=== PATIENT | male | born 1935 | race Caucasian/White ===

== ENCOUNTER 2017-01-14 12:33 | Inpatient (IN) ==
[2017-01-14] MEDS ORDERED: IPRATROPIUM/ALBUTEROL 3 ML AMPUL.NEB NEB ONE (12:50)
--- NOTE | 2017-01-14 12:55 | Emergency Department Note ---
General Adult HPI - General Chief complaint: Weakness Stated complaint: weakness, cough, falls, SOB, sores Time Seen by Provider: 01/14/17 12:51 Source: patient, family Mode of arrival: ambulatory Limitations: altered mental status - History of Present Illness HPI Narrative: This patient is a demented patient who lives at [facility] on the apartment side. Over the last couple days she has become weaker fallen several times and has developed a cough. Patient himself cannot give me much of any history. Family members are present. Onset (ago): day(s) - Related Data Previous Rx's Medication Instructions Recorded donepezil 5 mg tablet 5 mg PO BID #1 tab 12/10/16 memantine 10 mg tablet 10 mg PO BID #1 tab 12/10/16 paroxetine 10 mg tablet 10 mg PO QDAY #1 tab 12/10/16 propafenone 225 mg tablet 225 mg PO BID #1 tab 12/10/16 lorazepam 0.5 mg tablet 0.25 mg PO BID PRN #30 tab 12/30/16 Allergies Allergy/AdvReac Type Severity Reaction Status Date / Time No Known Drug Allergies Allergy Unverified 12/10/16 15:44 Review of Systems Constitutional: Denies: fever, chills Eyes: Denies: eye pain ENT ED: Denies: ear pain Cardiovascular: Denies: chest pain Respiratory: Reports: cough, dyspnea, wheezes Gastrointestinal: Denies: abdominal pain, nausea, vomiting Genitourinary: Denies: urgency Musculoskeletal: Denies: back pain Integumentary: Denies: rash Past Medical History - Past Medical History [facility] Narrative: Medical History (Last Updated 12/09/16 @ 10:38 by Rebecca Ortega) History of tobacco abuse (Chronic) Anxiety (Chronic ~1999) Arthritis (Chronic) Daytime sleepiness (Chronic ~2009) Heart trouble (Chronic ~1999) Colon cancer (Chronic ~2004) Lung cancer (Chronic ~2007) Dementia (Chronic ~2012) Family History Father Heart attack Past Surgical History (Last Updated 12/09/16 @ 10:36 by Rebecca Ortega) H/O colonoscopy (Chronic) History of herniorrhaphy (Chronic ~2012) History of intestinal surgery (Chronic ~2004) History of lung surgery (Chronic) Physical Exam - General Limitations: altered mental status General appearance: alert, in no apparent distress - Head Head exam: atraumatic, normocephalic - Eye Eye exam: Present: normal appearance - ENT ENT exam: normal exam - Neck Neck exam: Present: normal inspection - Chest Chest inspection: Present: normal inspection - Respiratory Respiratory exam: Present: other (Rhonchi especially on the right side) - Cardiovascular Cardiovascular exam: Present: regular rate, normal rhythm, normal heart sounds - Abdominal Exam Abdominal exam: Present: soft. Absent: distention, tenderness - Extremities Exam Extremities exam: Absent: pedal edema - Neurological Exam Neurological exam: Present: alert - Psychiatric Psychiatric exam: Present: flat affect - Skin Skin exam: Present: warm, dry, intact, normal color Course Vital Signs Temperature 97.6 F 01/14/17 12:34 Pulse Rate 77 01/14/17 12:34 Respiratory Rate 26 H 01/14/17 12:34 Blood Pressure 131/90 01/14/17 12:34 Pulse Oximetry (%) 90 01/14/17 12:34 Temperature 97.6 F 01/14/17 12:34 Pulse Rate 58 L 01/14/17 14:11 Respiratory Rate 22 01/14/17 14:17 Blood Pressure 124/91 01/14/17 13:31 Pulse Oximetry (%) 92 01/14/17 14:11 Medical Decision Making - [facility] Narrative Medical decision making narrative: Patient has significant bilateral pneumonia with multiple falls recently. He certainly is unstable to be sent back to [facility]. We gave him Levaquin and Rocephin and he will be admitted to the hospital. - Lab Data Lab results reviewed: Yes I reviewed the patient's lab results. Result diagrams: 01/14/17 13:02 01/14/17 13:02 Lab Results 01/14/17 01/14/17 01/14/17 Range/Units 13:02 13:02 13:02 WBC 5.9 (4.5-11.0) K/mcL RBC 3.83 L (4.50-5.90) M/mcL Hgb 12.0 L (13.5-16.5) g/dL Hct 35.6 L (41.0-55.0) % MCV 93.2 (80.0-100.0) fL MCH 31.5 (26.0-34.0) pg MCHC 33.8 (31.0-36.0) g/dL RDW 16.0 H (11.5-14.5) % Plt Count 212 (140-440) K/mcL MPV 8.1 (7.4-10.4) fL Gran % 76.7 (38.0-78.0) % Lymph % (Auto) 11.1 L (15.5-49.0) % [place] % (Auto) 10.9 (1.0-12.0) % Eos % (Auto) 1.1 (0.0-7.0) % Baso % (Auto) 0.2 (0.0-2.0) % Gran # 4.5 (1.8-8.0) K/mcL Lymph # (Auto) 0.7 L (1.5-4.8) K/mcL [place] # (Auto) 0.6 (0.1-0.9) K/mcL Eos # (Auto) 0.1 (0.0-0.7) K/mcL Baso # (Auto) 0 (0.0-0.3) K/mcL VBG Lactic Acid 1.2 (0.5-2.2) mmol/L Sodium 140 (133-145) mmol/L Potassium 3.9 (3.3-5.1) mmol/L Chloride 101 (96-108) mmol/L Carbon Dioxide 27 (22-30) mmol/L Anion Gap 12.0 (8-16) BUN 22 (8-23) mg/dl Creatinine 1.0 (0.7-1.2) mg/dl GFR Calculation 70 Glucose 101 (70-105) mg/dL Calcium 9.2 (8.6-10.4) mg/dl Total Bilirubin 0.5 (0.0-1.0) mg/dL AST 35 (0-37) U/l ALT 30 (0-40) U/l Alkaline Phosphatase 138 H (39-117) U/L Total Protein 6.8 (5.9-8.4) gm/dL Albumin 3.4 (3.2-5.2) gm/dL Globulin 3.4 (2.2-3.7) gm/dL Albumin/Globulin Ratio 1.0 (1.0-2.3) - Radiology Data Radiology results reviewed: Yes I reviewed the patient's radiology results. Disposition Clinical Impression: Pneumonia Disposition: Xfer As Inpt ([facility]) Condition: Fair Referrals: Nikita Olvera MD [Primary Care Provider] - Time of Disposition: 14:29
[2017-01-14] MEDS ORDERED: 0.9 % SODIUM CHLORIDE 1,000 ML IV SCH ×2 (13:00→16:16)
--- NOTE | 2017-01-14 13:23 | XRay Report ---
CLINICAL INFORMATION: Cough COMPARISON: 01/14/2009 FINDINGS: Mild cardiomegaly is unchanged. Mediastinum and pulmonary vessels are normal. Right subclavian Port-A-Cath in stable satisfactory position A moderate sized consolidated infiltrate in the right midlung has developed. There is a moderate, although vague, infiltrate in the left midlung and base. Small bilateral pleural effusions noted IMPRESSION: Moderate sized consolidated infiltrate right midlung and smaller vague infiltrate left midlung. Consider aspiration, bilateral pneumonia or ARDS. Interpreted and Authenticated by: José Miguel Lindsay 01/14/17
[2017-01-14] MEDS ORDERED: LEVOFLOXACIN 500 MG/100 ML BAG IV ONE (13:26)
[2017-01-14] MEDS ORDERED: cefTRIAXone 1 GM in DEXTROSE 5% IN WATER 50 ML IV ONE (13:26)
[2017-01-14 13:37] LABS: Basophils # (Auto) 0 K/mcL (0.0-0.3); Basophils % (Auto) 0.2 % (0.0-2.0); Eosinophils # (Auto) 0.1 K/mcL (0.0-0.7); Eosinophils % (Auto) 1.1 % (0.0-7.0); Granulocytes % (Auto) 76.7 % (38.0-78.0); Lymphocytes # (Auto) 0.7 K/mcL (1.5-4.8); Lymphocytes % (Auto) 11.1 % (15.5-49.0); Mean Cell Volume 93.2 fL (80.0-100.0); Mean Corpuscular HGB Conc 33.8 g/dL (31.0-36.0); Mean Corpuscular Hemoglobin 31.5 pg (26.0-34.0); Monocytes # (Auto) 0.6 K/mcL (0.1-0.9); Monocytes % (Auto) 10.9 % (1.0-12.0); Platelet Count 212 K/mcL (140-440); RBC 3.83 M/mcL (4.50-5.90)
[2017-01-14 13:52] LABS: ALT/SGPT 30 U/l (0-40); Albumin 3.4 gm/dL (3.2-5.2); Alkaline Phosphatase 138 U/L (39-117); Blood Urea Nitrogen 22 mg/dl (8-23)
[2017-01-14] MEDS ORDERED: VANCOMYCIN PER PHARMACY IV ONE (15:25)
[2017-01-14] MEDS ORDERED: VANCOMYCIN 1,500 MG in 0.9 % SODIUM CHLORIDE 500 ML IV ONE ×2 (15:30→16:16)
[2017-01-14] MEDS ORDERED: LORazepam 2 MG/ML VIAL IV ONE (15:35)
--- NOTE | 2017-01-14 15:45 | Internal Med History&Physical ---
Medical - H&P: HPI Patient information: Note initiated : 01/14/17 at 3:26 pm Service Date, if different from initiated Date: [] Patient: Ashkan Alfred a 81 y/o M admitted on for weakness, cough, falls, SOB, sores. Chief Complaint: [] History of present illness: Mr. Alfred is a 81 year old male who lives in [facility], presents to the ER with complaints of recurrent falls over the last few days, feeling weak and tired unable to care for himself. 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 The patient since october has not been doing well, his p assed away at that time and since then t here has been a gradual decline in his overall health. The patient over the last few days has had recurrent episodes of falling, no obvious injuries reported. the patient has also had increased shortness of breath and some wet cough, (he usually has dry cough). There is no reported fever or chills. The patient was therefore brought in for further evaluation. In the ER it was noted he was hypoxic, and his Chest x ray suggestive of PNA, his lactic acid is normal, bp st able. He was admitted to the hospital for further management. He is DNR POA is son, who is on vacation, Daugther was at bedside who provided most history, patient has dementia but can answer some questions. Review of systems: CONSTITUTIONAL: fatigue present, HEENT: Eyes: No visual loss, blurred vision, double vision or yellow sclerae. Ears, Nose, Throat: No hearing loss, sneezing, congestion, runny nose or sore throat. SKIN: No rash or itching. CARDIOVASCULAR: No chest pain, chest pressure or chest discomfort. No palpitations or edema. (pt denies all symptoms) RESPIRATORY: No shortness of breath, cough or sputum. has chr cough, but pt denies active cough. GASTROINTESTINAL: No nausea, vomiting or diarrhea or constipation. No abdominal pain or blood in stools No Ban. GENITOURINARY: Denies Burning on urination. Blood in urine, or foul smelling urine NEUROLOGICAL: No headache, dizziness, syncope, paralysis, tremors, numbness or tingling in the extremities. No change in bowel or bladder control. MUSCULOSKELETAL: No muscle, back pain, joint pain or stiffness. HEMATOLOGIC: No bleeding or bruising. No enlarged nodes PSYCHIATRIC: No depression or anxiety. ENDOCRINOLOGIC: No reports of sweating, cold or heat intolerance. No polyuria or polydipsia. ALLERGIES: No hives, eczema or rhinitis. Skin: No rash, no jaundice, cyanosis or pallor. Medical - H&P: [facility] Medical history: Medical History (Last Updated 01/14/17 @ 14:30 by Gumaro Reyes MD) Anxiety (Chronic ~1999) Arthritis (Chronic) Colon cancer (Chronic ~2004) Daytime sleepiness (Chronic ~2009) Dementia (Chronic ~2012) Heart trouble (Chronic ~1999) History of tobacco abuse (Chronic) Lung cancer (Chronic ~2007) Surgical history: Past Surgical History (Last Updated 12/09/16 @ 10:36 by Rebecca Ortega) H/O colonoscopy (Chronic) History of herniorrhaphy (Chronic ~2012) History of intestinal surgery (Chronic ~2004) History of lung surgery (Chronic) Family history: reviewed and not pertinent Medical - H&P: Meds Home Medications Medication Instructions Recorded Confirmed Type donepezil 5 mg tablet 5 mg PO BID #1 tab 12/10/16 12/10/16 Rx memantine 10 mg tablet 10 mg PO BID #1 tab 12/10/16 12/10/16 Rx paroxetine 10 mg tablet 10 mg PO QDAY #1 tab 12/10/16 12/10/16 Rx propafenone 225 mg tablet 225 mg PO BID #1 tab 12/10/16 12/10/16 Rx lorazepam 0.5 mg tablet 0.25 mg PO BID PRN #30 tab 12/30/16 Rx Allergies Allergy/AdvReac Type Severity Reaction Status Date / Time No Known Drug Allergies Allergy Unverified 12/10/16 15:44 Medical - H&P: Exam - Constitutional Vitals: Temp Pulse Resp BP Pulse Ox 97.6 F 26 L 18 105/94 90 01/14/17 12:34 01/14/17 14:52 01/14/17 14:52 01/14/17 14:32 01/14/17 14:52 Exam: GENERAL: The patient is a well-developed, well-nourished in no apparent distress. Is alert and oriented x1. VITAL SIGNS: Reviewed and as noted elsewhere. HEENT: Head is normocephalic and atraumatic. Extraocular muscles are intact. Pupils are equal, round, and reactive to light. Nares appeared normal. Mouth appears any without lesions. Mucous membranes are dry. NECK: Normal to inspection, Supple, No lymphadenopathy or thyromegaly. LUNGS: Air entry equal on both sides, no wheezing, corase rhonchi on right side , mild crackles both bases. No accessory muscles of respiration HEART: Regular rate and rhythm irregular, S1 and S2 heard, no Gallop, S3 or Rub Noted, No Gross murmur heard. ABDOMEN: Soft, nontender, and nondistended. Positive bowel sounds. No hepatosplenomegaly was noted. EXTREMITIES: No cyanosis, clubbing, rash, lesions or edema. NEUROLOGIC: Cranial nerves II through XII are grossly intact. Motor and Sensory System Grossly Intact PSYCHIATRIC: Not agitated, drowsy SKIN: No ulceration or wounds noted, No jaundice, No rash noted. Medical - H&P: Reslt - Labs CBC & Chem 7: 01/14/17 13:02 01/14/17 13:02 Labs: Short CBC 01/14/17 Range/Units 13:02 WBC 5.9 (4.5-11.0) K/mcL Hgb 12.0 L (13.5-16.5) g/dL Hct 35.6 L (41.0-55.0) % Plt Count 212 (140-440) K/mcL BMP 01/14/17 13:02 Sodium 140 Potassium 3.9 Chloride 101 Carbon Dioxide 27 BUN 22 Creatinine 1.0 Glucose 101 Calcium 9.2 Liver Function 01/14/17 Range/Units 13:02 Total Bilirubin 0.5 (0.0-1.0) mg/dL AST 35 (0-37) U/l ALT 30 (0-40) U/l Alkaline Phosphatase 138 H (39-117) U/L Albumin 3.4 (3.2-5.2) gm/dL Medical - H&P: A/P - Narrative A/P Narrative: a/p Health care associated pneumonia: IV vanco and zosyn, for same, await results of culture. possible aspiration, zosyn should cover. Dementia: fairly advanced it seems, has sundowning, continue home meds aricept and memantine Afib: ON beta blockers, propafenone and eliquis continue same. Rate well controlled Acute hypoxic resp failure: On 3L oxygen via nasal canula continue same. anxiety/ depression: on paroxitine and prn ativan will continue same Will get OT/PT ST eval code DNR Diet: Cardiac Prognosis guarded Social History - Social History marital status: - Tobacco smoking status: Former smoker - Alcohol alcohol intake frequency: does not drink - Substance use substance use type: does not use
[2017-01-14] MEDS ORDERED: VANCOMYCIN PER PHARMACY IV SCH (16:16)
[2017-01-14] MEDS ORDERED: NALOXONE HCL 0.4 MG/ML VIAL IV PRN (16:16)
[2017-01-14] MEDS ORDERED: ONDANSETRON 4 MG/2 ML VIAL IV PRN (16:16)
[2017-01-14] MEDS ORDERED: ACETAMINOPHEN 325 MG TABLET PO PRN (16:16)
[2017-01-14 16:26] LABS: Appearance,Urine CLEAR; Bacteria,Urine 0 /hpf (0); Bilirubin,Urine NEG (NEG); Color,Urine YELLOW; Glucose,Urine (UA) NEGATIVE (NEG); Leukocyte Esterase,Urine NEG /uL (NEG); Mucus,Urine FEW /hpf (0); Nitrate,Urine NEG (NEG); Protein,Urine 30 mg/dL (NEG); Specific Gravity,Urine 1.029 (1.000-1.035); Urine Blood 0.03 mg/dL (<0.03); Urine RBC 7 /hpf (0-1); Urine Squamous Epithelial Cell < 1 /hpf (0-4); Urine WBC 2 /hpf (0-4); Urobilinogen,Urine NEG (NEG)
[2017-01-14] MEDS: PIPERACILLIN SODIUM/TAZOBACTAM 3.375 GM in DEXTROSE 5% IN WATER 50 ML IV SCH ×2 (17:55→23:32)
[2017-01-14] MEDS: MEMANTINE 10 MG TABLET PO SCH (19:46)
[2017-01-14] MEDS: PROPAFENONE 150 MG TABLET PO SCH (19:46)
[2017-01-14] MEDS: DONEPEZIL 10 MG TABLET PO SCH (19:47)
[2017-01-14] MEDS: APIXABAN 5 MG TABLET PO SCH (19:48)
[2017-01-14] MEDS: IPRATROPIUM/ALBUTEROL 3 ML AMPUL.NEB NEB SCH ×3 (21:02→23:34)
[2017-01-14] MEDS ORDERED: FUROSEMIDE 20 MG/2 ML VIAL IV ONE (21:04)
[2017-01-14] MEDS: 0.9 % SODIUM CHLORIDE 10 ML SYRINGE IV SCH (21:15)
[2017-01-14] MEDS: LORazepam 0.5 MG TABLET PO PRN (21:31)
[2017-01-14] MEDS: LORazepam 2 MG/ML VIAL IV PRN (22:23)
[2017-01-14] MEDS: methylPREDNISolone SOD SUCC 125 MG/2 ML VIAL IV SCH (22:29)
[2017-01-15] MEDS: LORazepam 2 MG/ML VIAL IV PRN ×6 (00:08→22:43)
[2017-01-15] MEDS: IPRATROPIUM/ALBUTEROL 3 ML AMPUL.NEB NEB SCH ×6 (03:34→22:43)
[2017-01-15] MEDS: methylPREDNISolone SOD SUCC 125 MG/2 ML VIAL IV SCH ×3 (05:21→22:45)
[2017-01-15] MEDS: PIPERACILLIN SODIUM/TAZOBACTAM 3.375 GM in DEXTROSE 5% IN WATER 50 ML IV SCH ×4 (05:22→22:47)
[2017-01-15] MEDS: 0.9 % SODIUM CHLORIDE 10 ML SYRINGE IV SCH ×4 (05:22→22:47)
[2017-01-15 05:41] LABS: Basophils # (Auto) 0 K/mcL (0.0-0.3); Basophils % (Auto) 0 % (0.0-2.0); Eosinophils # (Auto) 0 K/mcL (0.0-0.7); Eosinophils % (Auto) 0.3 % (0.0-7.0); Granulocytes % (Auto) 95.1 % (38.0-78.0); Lymphocytes # (Auto) 0.2 K/mcL (1.5-4.8); Lymphocytes % (Auto) 3.4 % (15.5-49.0); Mean Corpuscular HGB Conc 33.5 g/dL (31.0-36.0); Mean Corpuscular Hemoglobin 31.4 pg (26.0-34.0); Monocytes # (Auto) 0.1 K/mcL (0.1-0.9); Monocytes % (Auto) 1.2 % (1.0-12.0); Platelet Count 201 K/mcL (140-440); RBC 3.71 M/mcL (4.50-5.90); Red Cell Distribution Width 15.6 % (11.5-14.5)
[2017-01-15 05:58] LABS: ALT/SGPT 25 U/l (0-40); Albumin 3.4 gm/dL (3.2-5.2); Albumin/Globulin Ratio 1.2 (1.0-2.3); Alkaline Phosphatase 125 U/L (39-117); Bilirubin,Direct < 0.2 mg/dL (0.0-0.3); Blood Urea Nitrogen 18 mg/dl (8-23); Gamma Glutamyl Transpeptidase 37 U/L (8-61); Magnesium 1.8 mg/dL (1.6-2.5); Uric Acid 4.2 mg/dL (2.5-8.0)
--- NOTE | 2017-01-15 08:41 | General Surgery Consult Note ---
History of Present Illness Patient information: Note initiated : 01/15/17 at 8:32 am Service Date, if different from initiated Date: [] Patient: Ashkan Alfred 81 y/o M admitted on 01/14/17 for weakness, cough, falls, SOB, sores. Chief Complaint: [] Consult date: 01/15/17 (Wound Care) Reason for consult: wound care Requesting physician: Clark Henry History of present illness: 81 WM Resident of [facility], [facility]. Dementia, h/o colon cancer ,bowel cancer, s /p previous surgeries and other co morbid medical conditions. I reviewed his EHR notes and examined this patient along with nursing staff for skin and wound checks. There has been a recent decline in his cognition status and he has fallen several times. He was admitted to ICU via ER for altered mental status and Healthcare facility related pneumonia. His in October 2016 Currently, he is responding to broad spectrum IV antibiotics AND his breathing has significantly improved with diuresis. His O2 sats are now over 90s on 2 liters NC. During admission survey he was noted to have skin tears , abrasions. of left hand, right forearm and leg and over sacral area. Medications and Allergies Home Medications Medication Instructions Recorded Confirmed Type donepezil 5 mg tablet 5 mg PO BID #1 tab 12/10/16 01/14/17 Rx memantine 10 mg tablet 10 mg PO BID #1 tab 12/10/16 01/14/17 Rx lorazepam 0.5 mg tablet 0.25 mg PO BID PRN #30 tab 12/30/16 01/14/17 Rx Apixaban [Eliquis] 2.5 mg PO BID 01/14/17 01/14/17 History LORazepam [Ativan] 0.25 mg PO BID PRN 01/14/17 01/14/17 History Metoprolol Succinate 25 mg PO QDAY 01/14/17 01/14/17 History Miralax 1 pkg PO QDAY 01/14/17 01/14/17 History PARoxetine 10 mg PO QDAY 01/14/17 01/14/17 History Paxil 10 mg PO QDAY 01/14/17 01/14/17 History Propafenone 225 mg PO BID 01/14/17 01/14/17 History Remedy Calazime Skin Paste 1 dose TOPICAL BID 01/14/17 01/14/17 History Tylenol 325 mg PO PRN PRN 01/14/17 01/14/17 History Allergies Allergy/AdvReac Type Severity Reaction Status Date / Time No Known Drug Allergies Allergy Unverified 12/10/16 15:44 Exam Temp Pulse Resp BP Pulse Ox 99.0 F H 73 20 122/86 95 01/15/17 04:06 01/15/17 07:30 01/15/17 07:30 01/15/17 05:01 01/15/17 07:30 - General physical appearance well developed, well nourished, moderate distress, chronically ill - Eyes PERRL, normal ocular movement - ENT normal pinna, normal nares, normal mucosa, decreased hearing, other (NO activity of accessory muscles of respiration or flaringof nostrils.) - Head Head exam IM: Present: atraumatic, normal inspection, normocephalic - Neck no masses, no bruits, trachea midline, no lymphadectomy, no venous distension - Cardiovascular Cardiovascular exam IM: Present: irregular rhythm - Respiratory normal respiratory effort, other (Decreased air entry at lung bases. Fine crackles. ) - Abdomen Abdomen: Present: soft, non tender, bowel sounds - Genitourinary Present: normal penis with no external lesions, testicles present, other (Tay catheter draining clear urine.) - Integumentary Present: other (ABRASIONS EPITHELIAL dry and lean between 2-3 CM over dorsal aspect of Left hand, Right forearm and Right lateral mid leg. GRADE 1 dry sacral skin ulcer with pink granulation < 2 CM ) over left land right buttock skin folds. Atleast 6-8 CM away from anal verge. ) - Neurologic Present: other (CASTILLO. No focal neurological deficits. ) - Musculoskeletal Present: other (Bed confined. Skeletal survery NO fractures / dislocations. ) - Psychiatric Present: other (Confused, but appropriate in responses. ) Results - Labs 01/15/17 03:46 01/15/17 03:46 Abnormal lab results 01/15/17 01/15/17 Range/Units 03:46 03:46 RBC 3.71 L (4.50-5.90) M/mcL Hgb 11.7 L (13.5-16.5) g/dL Hct 34.9 L (41.0-55.0) % RDW 15.6 H (11.5-14.5) % Gran % 95.1 H (38.0-78.0) % Lymph % (Auto) 3.4 L (15.5-49.0) % Lymph # (Auto) 0.2 L (1.5-4.8) K/mcL Glucose 122 H (70-105) mg/dL Alkaline Phosphatase 125 H (39-117) U/L Lactate Dehydrogenase 259 H (94-250) U/L Diabetes panel 01/15/17 Range/Units 03:46 Sodium 140 (133-145) mmol/L Potassium 4.3 (3.3-5.1) mmol/L Chloride 101 (96-108) mmol/L Carbon Dioxide 27 (22-30) mmol/L BUN 18 (8-23) mg/dl Creatinine 1.0 (0.7-1.2) mg/dl Glucose 122 H (70-105) mg/dL Calcium 8.7 (8.6-10.4) mg/dl AST 32 (0-37) U/l ALT 25 (0-40) U/l Alkaline Phosphatase 125 H (39-117) U/L Total Protein 6.3 (5.9-8.4) gm/dL Albumin 3.4 (3.2-5.2) gm/dL Triglycerides 46 (<150) mg/dl Calcium panel 01/15/17 Range/Units 03:46 Calcium 8.7 (8.6-10.4) mg/dl Phosphorus 4.1 (2.7-4.5) mg/dL Albumin 3.4 (3.2-5.2) gm/dL Pituitary panel 01/15/17 Range/Units 03:46 Sodium 140 (133-145) mmol/L Potassium 4.3 (3.3-5.1) mmol/L Chloride 101 (96-108) mmol/L Carbon Dioxide 27 (22-30) mmol/L BUN 18 (8-23) mg/dl Creatinine 1.0 (0.7-1.2) mg/dl Glucose 122 H (70-105) mg/dL Calcium 8.7 (8.6-10.4) mg/dl Adrenal panel 01/15/17 Range/Units 03:46 Sodium 140 (133-145) mmol/L Potassium 4.3 (3.3-5.1) mmol/L Chloride 101 (96-108) mmol/L Carbon Dioxide 27 (22-30) mmol/L BUN 18 (8-23) mg/dl Creatinine 1.0 (0.7-1.2) mg/dl Glucose 122 H (70-105) mg/dL Calcium 8.7 (8.6-10.4) mg/dl Total Bilirubin 0.7 (0.0-1.0) mg/dL AST 32 (0-37) U/l ALT 25 (0-40) U/l Alkaline Phosphatase 125 H (39-117) U/L Total Protein 6.3 (5.9-8.4) gm/dL Albumin 3.4 (3.2-5.2) gm/dL All other labs normal. Assessment and Plan (1) Abrasion of skin Status: Acute Priority: Low Comment: Conservative management. Dry protective Mepilex border dressing . Daily checks. Change 2 times a week (2) Pressure ulcer Status: Acute Priority: Low Comment: Conservative management Thin duoderm over skin tear and ulcer sites. Absorbant MACARENA pad under hips, sacral anb buttock areas. OFF loading 30 degree foam wedges and change position q 2 hrly
[2017-01-15] MEDS: PARoxetine 20 MG TABLET PO SCH (09:29)
[2017-01-15] MEDS: MEMANTINE 10 MG TABLET PO SCH ×2 (09:29→20:22)
[2017-01-15] MEDS: METOPROLOL SUCCINATE 25 MG TAB.XL.24H PO SCH (09:29)
[2017-01-15] MEDS: PROPAFENONE 150 MG TABLET PO SCH ×2 (09:30→20:21)
[2017-01-15] MEDS: DONEPEZIL 10 MG TABLET PO SCH ×2 (09:30→20:22)
[2017-01-15] MEDS: APIXABAN 5 MG TABLET PO SCH (09:30)
--- NOTE | 2017-01-15 11:56 | Internal Med Progress Note ---
Medical - PN: Subj Patient information: Note initiated : 01/15/17 at 11:46 am Service Date, if different from initiated Date: [] Patient: Ashkan Alfred 81 y/o M admitted on 01/14/17 for weakness, cough, falls, SOB, sores. Chief Complaint: [] Interval history: Mr. Alfred is a 81 year old male who lives in [facility], [facility], presents to the ER with complaints of recurrent falls over the last few days, feeling weak and tired unable to care for himself. 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 The patient since october has not been doing well, his p assed away at that time and since then t here has been a gradual decline in his overall health.The patient over the last few days has had recurrent episodes of falling, no obvious injuries reported. the patient has also had increased shortness of breath and some wet cough, (he usually has dry cough). There is no reported fever or chills. The patient was therefore brought in for further evaluation. In the ER it was noted he was hypoxic, and his Chest x ray suggestive of PNA, his lactic acid is normal, bp st able. He was admitted to the hospital for further management. He is DNR POA is son, who is on vacation, Daugther was at bedside who provided most history, patient has dementia but can answer some questions. 01/15: Patient seen examined, overnight his condition had worsened, he was more short of breath with increased oxygen requirement and increased crackles on exam. He was given 20mg IV lasix, IVF stopped, he also had proloned exp phase and was started on IV steroids for copd flare up. This AM his breathing is better, his air entry is better and he is on 3L nc. He is DNR, family updated about poor progonosis. Patient will continue on IV antibiotics for now. Microbiology pending. pt remains non verbal, makes mumbling sounds, does not answer questions. Pertinent ROS: unable due to mental status - Constitutional Vitals: Vital Signs Temp Pulse Resp BP Pulse Ox 97.8 F 76 22 131/90 94 01/15/17 08:00 01/15/17 11:43 01/15/17 08:00 01/15/17 08:00 01/15/17 08:00 Period Temp Pulse Resp BP Sys/Anne Pulse Ox Last 24 Hr 97.7 F-99.2 F 61-95 20-25 105-179/52-152 77-97 Intake and Output 01/14/17 01/15/17 01/15/17 21:59 05:59 13:59 Intake Total 650 / 800 100 / 100 Output Total 200 / 200 2210 / 2210 100 / 100 Balance 450 / 600 -2110 / -2110 -100 / -100 Weight 158 lb 14.4 oz 158 lb 14.4 oz Patient Weight 01/16/17 05:59 Weight 158 lb 14.4 oz Intake & Output: Intake & Output 01/14/17 01/15/17 01/15/17 21:59 05:59 13:59 Intake Total 650 / 800 100 / 100 Output Total 200 / 200 2210 / 2210 100 / 100 Balance 450 / 600 -2110 / -2110 -100 / -100 Weight 158 lb 14.4 oz 158 lb 14.4 oz Intake: IV 550 / 550 100 / 100 Zosyn 3.375 gm In 50 / 50 100 / 100 Dextrose 5% in Water 50 ml @ 100 mls/hr IV Q6H [facility] Rx#:[id number] Vancomycin 1,500 mg In 500 / 500 Sodium Chloride 0.9% 500 ml @ 333.3 mls/hr IV ONCE ONE Rx#:[id number] Oral 100 / 100 Output: Urine Catheter Amount 2210 / 2210 100 / 100 Void Amount 200 / 200 Other: Percent of Meal Consumed 50% Feeding Ability Assist with Tray Set Up Exam: Constitutional; Afebrile, drowsy, in mild distress, Eyes- No icterus, , No periorbital swelling Ears- Ext ear normal, Neck- Midline trachea, supple Respiratory system: Air Entry equal on both sides, Proloned exp phase, bilbasilar crackles, CVS- Rate rhythm Irregular, S1,S2 heard, no gallop, no rub. Abdomen- Soft nontender abdomen, no organomegaly, no tenderness, no guarding or rigidity, PHYSICAL METALLURGIST- AOOx0, moving all extremities, no gross focal deficit noted. pin rolling tremors noted. Medical - PN: Obj Da - Labs CBC & Chem 7: 01/15/17 03:46 01/15/17 03:46 Labs: Abnormal Lab Results 01/15/17 01/15/17 03:46 03:46 RBC 3.71 L Hgb 11.7 L Hct 34.9 L RDW 15.6 H Gran % 95.1 H Lymph % (Auto) 3.4 L Lymph # (Auto) 0.2 L Glucose 122 H Alkaline Phosphatase 125 H Lactate Dehydrogenase 259 H Meds: Medications Acetaminophen (Tylenol) 650 mg PO Q6HP PRN PRN Reason: PAIN/FEVER > 101 Hydrocodone Bitart/Acetaminophen ([place] 5/325mg) 1 tab PO Q4HP PRN PRN Reason: Pain Albuterol/Ipratropium (Duoneb) 3 ml NEB Q4HRT [facility] Last Admin: 01/15/17 07:29 Dose: 3 ml Donepezil HCl (Aricept) 5 mg PO BID [facility] Last Admin: 01/15/17 09:30 Dose: 5 mg Piperacillin Sod/Tazobactam (Sod 3.375 gm/ Dextrose) 50 mls @ 100 mls/hr IV Q6H [facility] Last Admin: 01/15/17 11:26 Dose: 100 mls/hr Lorazepam (Ativan) 0.25 mg PO BID PRN PRN Reason: ANXIETY/SEDATION Last Admin: 01/14/17 21:31 Dose: 0.25 mg Lorazepam (Ativan) 0.5 - 1 mg IV Q2HP PRN PRN Reason: ANXIETY/SEDATION Last Admin: 01/15/17 10:01 Dose: 0.5 mg Memantine (Namenda) 10 mg PO BID [facility] Last Admin: 01/15/17 09:29 Dose: 10 mg Methylprednisolone Sodium Succinate (Solu-Medrol) 62.5 mg IV Q8 [facility] Last Admin: 01/15/17 05:21 Dose: 62.5 mg Metoprolol Succinate (Toprol Xl) 25 mg PO DAILY [facility] Last Admin: 01/15/17 09:29 Dose: 25 mg Naloxone HCl (Narcan) 0.1 mg IV Q2MIN PRN PRN Reason: Opiate Reversal Apixaban 2.5 Mg (Tablet) 1 dose PO BID [facility] Ondansetron HCl (Zofran) 4 mg IV Q4HP PRN PRN Reason: Nausea And Vomiting Paroxetine HCl (Paxil) 10 mg PO DAILY [facility] Last Admin: 01/15/17 09:29 Dose: 10 mg Propafenone HCl (Rythmol) 225 mg PO BID [facility] Last Admin: 01/15/17 09:30 Dose: 225 mg Sodium Chloride (Saline Flush) 10 ml IV Q8 [facility] Last Admin: 01/15/17 05:22 Dose: 10 ml Vancomycin HCl (Vancomycin Per Pharmacy) 1 order IV UD [facility] Medical - PN: A/P - Time Spent With Patient Total time spent is greater than 50% in coordination of care (as documented) at patient's floor/unit and/or counseling patient: - Narrative A/P Narrative: a/p Health care associated pneumonia: IV vanco and zosyn, for same, await results of culture. possible aspiration, zosyn should cover. Patient clinically stable, continue Dementia: fairly advanced it seems, has sundowning, continue home meds aricept and memantine Afib: ON beta blockers, propafenone and eliquis continue same. Rate well controlled Acute hypoxic resp failure: On 3L oxygen via nasal canula continue same. COPD exacerbation/ Reactive airway disease: IV steroids and duonebs for now, monitor. anxiety/ depression: on paroxitine and prn ativan will continue same Will get OT/PT ST eval code DNR Diet: Cardiac Prognosis guarded Medical - PN: Qual - VTE Deep Vein Thrombosis/Pulmonary Embolism Present on Admission: No
[2017-01-15] MEDS: APIXABAN 2.5 MG TABLET PO SCH (20:24)
[2017-01-16] MEDS: LORazepam 2 MG/ML VIAL IV PRN ×5 (01:59→23:30)
[2017-01-16] MEDS: IPRATROPIUM/ALBUTEROL 3 ML AMPUL.NEB NEB SCH ×6 (03:13→22:59)
[2017-01-16 05:18] LABS: Basophils # (Auto) 0 K/mcL (0.0-0.3); Basophils % (Auto) 0.1 % (0.0-2.0); Eosinophils # (Auto) 0 K/mcL (0.0-0.7); Eosinophils % (Auto) 0.3 % (0.0-7.0); Granulocytes % (Auto) 94.2 % (38.0-78.0); Lymphocytes # (Auto) 0.3 K/mcL (1.5-4.8); Lymphocytes % (Auto) 3.2 % (15.5-49.0); Mean Cell Volume 92.7 fL (80.0-100.0); Mean Corpuscular HGB Conc 33.4 g/dL (31.0-36.0); Mean Corpuscular Hemoglobin 30.9 pg (26.0-34.0); Monocytes # (Auto) 0.2 K/mcL (0.1-0.9); Monocytes % (Auto) 2.2 % (1.0-12.0); Platelet Count 216 K/mcL (140-440); RBC 3.91 M/mcL (4.50-5.90); Red Cell Distribution Width 15.4 % (11.5-14.5)
[2017-01-16] MEDS: methylPREDNISolone SOD SUCC 125 MG/2 ML VIAL IV SCH ×3 (05:26→23:08)
[2017-01-16] MEDS: PIPERACILLIN SODIUM/TAZOBACTAM 3.375 GM in DEXTROSE 5% IN WATER 50 ML IV SCH ×4 (05:26→22:56)
[2017-01-16] MEDS: 0.9 % SODIUM CHLORIDE 10 ML SYRINGE IV SCH ×6 (05:27→23:08)
[2017-01-16 05:45] LABS: ALT/SGPT 24 U/l (0-40); Albumin 3.4 gm/dL (3.2-5.2); Alkaline Phosphatase 114 U/L (39-117); Bilirubin,Direct < 0.2 mg/dL (0.0-0.3); Blood Urea Nitrogen 28 mg/dl (8-23); Gamma Glutamyl Transpeptidase 38 U/L (8-61); Magnesium 2.1 mg/dL (1.6-2.5); Uric Acid 3.3 mg/dL (2.5-8.0)
[2017-01-16] MEDS: PROPAFENONE 150 MG TABLET PO SCH ×2 (09:11→23:05)
[2017-01-16] MEDS: DONEPEZIL 10 MG TABLET PO SCH ×2 (09:11→23:01)
[2017-01-16] MEDS: MEMANTINE 10 MG TABLET PO SCH ×2 (09:12→23:01)
[2017-01-16] MEDS: LORazepam 0.5 MG TABLET PO PRN (09:12)
[2017-01-16] MEDS: PARoxetine 20 MG TABLET PO SCH (09:13)
[2017-01-16] MEDS: METOPROLOL SUCCINATE 25 MG TAB.XL.24H PO SCH (09:16)
[2017-01-16] MEDS: APIXABAN 2.5 MG TABLET PO SCH ×2 (09:22→23:02)
--- NOTE | 2017-01-16 10:56 | Internal Med Progress Note ---
Medical - PN: Subj Patient information: Note initiated : 01/16/17 at 10:52 am Service Date, if different from initiated Date: [] Patient: Ashkan Alfred 81 y/o M admitted on 01/14/17 for weakness, cough, falls, SOB, sores. Chief Complaint: [] Interval history: Mr. Alfred is a 81 year old male who lives in [facility], presents to the ER with complaints of recurrent falls over the last few days, feeling weak and tired unable to care for himself. 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 The patient since october has not been doing well, his p assed away at that time and since then t here has been a gradual decline in his overall health.The patient over the last few days has had recurrent episodes of falling, no obvious injuries reported. the patient has also had increased shortness of breath and some wet cough, (he usually has dry cough). There is no reported fever or chills. The patient was therefore brought in for further evaluation. In the ER it was noted he was hypoxic, and his Chest x ray suggestive of PNA, his lactic acid is normal, bp st able. He was admitted to the hospital for further management. He is DNR POA is son, who is on vacation, Daugther was at bedside who provided most history, patient has dementia but can answer some questions. 01/15: Patient seen examined, overnight his condition had worsened, he was more short of breath with increased oxygen requirement and increased crackles on exam. He was given 20mg IV lasix, IVF stopped, he also had prolonged exp phase and was started on IV steroids for copd flare up. This AM his breathing is better, his air entry is better and he is on 3L nc. He is DNR, family updated about poor prognosis. Patient will continue on IV antibiotics for now. Microbiology pending. pt remains non verbal, makes mumbling sounds, does not answer questions. 01/16: Patient seen examined, no acute overnight issues, pt non verbal, still on 3-4 L oxygen. I discussed patients condition with his family again yesterday, two children are here, the POA is here. The other son Daksha is in [place], who I called to give an update. It seems the siblings here and Daksha do not agree with the plan of care. The son Daksha Alfred seemed to have the idea that the paroxetine was the culprit in the patients mental condition. Although he did agree that dementia meds are necessary. I explained to him that at this time we need to treat the infection and I will leave the decision of anti depressant medication adjustment to his PCP. Pertinent ROS: unable, due to mental status - Constitutional Vitals: Vital Signs Temp Pulse Resp BP Pulse Ox 97.3 F 90 24 H 133/91 94 01/16/17 08:00 01/16/17 08:00 01/16/17 08:00 01/16/17 08:00 01/16/17 08:00 Period Temp Pulse Resp BP Sys/Anne Pulse Ox Last 24 Hr 97.0 F-99.1 F 48-91 20-24 113-181/73-142 89-100 Intake and Output 01/15/17 01/16/17 01/16/17 21:59 05:59 13:59 Intake Total 370 / 370 70 / 70 Output Total 350 / 350 140 / 140 Balance 20 / 20 -70 / -70 Weight 150 lb 3.2 oz Intake & Output: Intake & Output 01/15/17 01/16/17 01/16/17 21:59 05:59 13:59 Intake Total 370 / 370 70 / 70 Output Total 350 / 350 140 / 140 Balance 20 / 20 -70 / -70 Weight 150 lb 3.2 oz Intake: IV 50 / 50 50 / 50 Zosyn 3.375 gm In 50 / 50 50 / 50 Dextrose 5% in Water 50 ml @ 100 mls/hr IV Q6H [facility] Rx#:[id number] Oral 320 / 320 20 / 20 Output: Urine Catheter Amount 350 / 350 140 / 140 Other: Meal Dinner Percent of Meal Consumed 40 Feeding Ability Total Assistance Exam: Constitutional; Afebrile,not in distress. Eyes- No icterus, , No periorbital swelling Ears- Ext ear normal, hearing unable to assess. does not follow commands at times. Neck- Midline trachea, supple Respiratory system: Air Entry equal on both sides, gagan basilar crackles, prolonged exp phase. CVS- Rate rhythm irregular, S1,S2 heard, no gallop, no rub. Abdomen- Soft nontender abdomen, no organomegaly, no tenderness, no guarding or rigidity, GOLD LEAF GILDER- AOOx0, moving all extremities, no gross focal deficit noted. Medical - PN: Obj Da - Labs CBC & Chem 7: 01/16/17 03:53 01/16/17 03:53 Labs: Abnormal Lab Results 01/16/17 01/16/17 01/15/17 03:53 03:53 03:46 RBC 3.91 L Hgb 12.1 L Hct 36.2 L RDW 15.4 H Gran % 94.2 H Lymph % (Auto) 3.2 L Gran # 8.9 H Lymph # (Auto) 0.3 L BUN 28 H Glucose 153 H 122 H Alkaline Phosphatase 125 H Lactate Dehydrogenase 300 H 259 H 01/15/17 03:46 RBC 3.71 L Hgb 11.7 L Hct 34.9 L RDW 15.6 H Gran % 95.1 H Lymph % (Auto) 3.4 L Gran # Lymph # (Auto) 0.2 L BUN Glucose Alkaline Phosphatase Lactate Dehydrogenase Meds: Medications Acetaminophen (Tylenol) 650 mg PO Q6HP PRN PRN Reason: PAIN/FEVER > 101 Hydrocodone Bitart/Acetaminophen ([place] 5/325mg) 1 tab PO Q4HP PRN PRN Reason: Pain Albuterol/Ipratropium (Duoneb) 3 ml NEB Q4HRT [facility] Last Admin: 01/16/17 07:41 Dose: 3 ml Donepezil HCl (Aricept) 5 mg PO BID [facility] Last Admin: 01/16/17 09:11 Dose: 5 mg Heparin Sodium (Porcine) (Heparin Flush) 2 ml IV Q12 [facility] Last Admin: 01/16/17 09:14 Dose: 2 ml Piperacillin Sod/Tazobactam (Sod 3.375 gm/ Dextrose) 50 mls @ 100 mls/hr IV Q6H [facility] Last Admin: 01/16/17 05:26 Dose: 100 mls/hr Lorazepam (Ativan) 0.25 mg PO BID PRN PRN Reason: ANXIETY/SEDATION Last Admin: 01/16/17 09:12 Dose: 0.25 mg Lorazepam (Ativan) 0.5 - 1 mg IV Q2HP PRN PRN Reason: ANXIETY/SEDATION Last Admin: 01/16/17 01:59 Dose: 0.5 mg Memantine (Namenda) 10 mg PO BID [facility] Last Admin: 01/16/17 09:12 Dose: 10 mg Methylprednisolone Sodium Succinate (Solu-Medrol) 62.5 mg IV Q8 [facility] Last Admin: 01/16/17 05:26 Dose: 62.5 mg Metoprolol Succinate (Toprol Xl) 25 mg PO DAILY [facility] Last Admin: 01/16/17 09:16 Dose: 25 mg Naloxone HCl (Narcan) 0.1 mg IV Q2MIN PRN PRN Reason: Opiate Reversal Apixaban 2.5 Mg (Tablet) 1 dose PO BID [facility] Stop: 01/17/17 22:00 Last Admin: 01/16/17 09:22 Dose: 1 dose Ondansetron HCl (Zofran) 4 mg IV Q4HP PRN PRN Reason: Nausea And Vomiting Paroxetine HCl (Paxil) 10 mg PO DAILY [facility] Last Admin: 01/16/17 09:13 Dose: 10 mg Propafenone HCl (Rythmol) 225 mg PO BID [facility] Last Admin: 01/16/17 09:11 Dose: 225 mg Sodium Chloride (Saline Flush) 10 ml IV Q8 [facility] Last Admin: 01/16/17 05:27 Dose: 10 ml Sodium Chloride (Saline Flush) 10 ml IV Q8 [facility] Last Admin: 01/16/17 05:27 Dose: 10 ml Vancomycin HCl (Vancomycin Per Pharmacy) 1 order IV UD [facility] Medical - PN: A/P - Time Spent With Patient Total time spent is greater than 50% in coordination of care (as documented) at patient's floor/unit and/or counseling patient: - Narrative A/P Narrative: a/p Health care associated pneumonia: IV vanco and zosyn, for same, await results of culture. possible aspiration, zosyn should cover. Patient clinically stable, continue, recheck CXR chest today. Dementia: fairly advanced it seems, has sundowning, continue home meds aricept and memantine Afib: ON beta blockers, propafenone and eliquis continue same. Rate well controlled Acute hypoxic resp failure: On 3-4L oxygen via nasal canula continue same. COPD exacerbation/ Reactive airway disease: IV steroids and duonebs for now, improvin. anxiety/ depression: on paroxitine and prn ativan will continue same, Alexandresofia laura,(son in [place]) has some concerns with its use, advised to discuss with siblings and his pcp. code DNR Diet: Cardiac Prognosis guarded, Medical - PN: Qual - VTE Deep Vein Thrombosis/Pulmonary Embolism Present on Admission: No
[2017-01-17] MEDS: HYDROcodone/APAP 5/325MG TABLET PO PRN ×3 (01:11→15:15)
[2017-01-17] MEDS: LORazepam 2 MG/ML VIAL IV PRN ×5 (01:17→21:50)
[2017-01-17] MEDS: IPRATROPIUM/ALBUTEROL 3 ML AMPUL.NEB NEB SCH ×5 (04:31→19:25)
[2017-01-17 05:24] LABS: Basophils # (Auto) 0 K/mcL (0.0-0.3); Basophils % (Auto) 0 % (0.0-2.0); Eosinophils # (Auto) 0 K/mcL (0.0-0.7); Eosinophils % (Auto) 0.3 % (0.0-7.0); Granulocytes % (Auto) 95.7 % (38.0-78.0); Lymphocytes # (Auto) 0.2 K/mcL (1.5-4.8); Lymphocytes % (Auto) 2.1 % (15.5-49.0); Mean Cell Volume 93.9 fL (80.0-100.0); Mean Corpuscular HGB Conc 33.4 g/dL (31.0-36.0); Mean Corpuscular Hemoglobin 31.3 pg (26.0-34.0); Monocytes # (Auto) 0.2 K/mcL (0.1-0.9); Monocytes % (Auto) 1.9 % (1.0-12.0); Platelet Count 203 K/mcL (140-440); RBC 3.68 M/mcL (4.50-5.90); Red Cell Distribution Width 15.9 % (11.5-14.5)
[2017-01-17] MEDS: methylPREDNISolone SOD SUCC 125 MG/2 ML VIAL IV SCH ×2 (05:43→21:49)
[2017-01-17] MEDS: 0.9 % SODIUM CHLORIDE 10 ML SYRINGE IV SCH ×6 (05:44→21:52)
[2017-01-17] MEDS: PIPERACILLIN SODIUM/TAZOBACTAM 3.375 GM in DEXTROSE 5% IN WATER 50 ML IV SCH ×3 (05:44→18:13)
[2017-01-17 05:45] LABS: ALT/SGPT 33 U/l (0-40); Albumin 3.2 gm/dL (3.2-5.2); Albumin/Globulin Ratio 1.1 (1.0-2.3); Alkaline Phosphatase 99 U/L (39-117); Bilirubin,Direct < 0.2 mg/dL (0.0-0.3); Blood Urea Nitrogen 30 mg/dl (8-23); Gamma Glutamyl Transpeptidase 47 U/L (8-61); Magnesium 2.2 mg/dL (1.6-2.5); Uric Acid 3.2 mg/dL (2.5-8.0)
[2017-01-17] MEDS: METOPROLOL SUCCINATE 25 MG TAB.XL.24H PO SCH (07:42)
[2017-01-17] MEDS: APIXABAN 2.5 MG TABLET PO SCH (07:42)
[2017-01-17] MEDS: MEMANTINE 10 MG TABLET PO SCH ×2 (07:58→21:51)
[2017-01-17] MEDS: PARoxetine 20 MG TABLET PO SCH (07:59)
[2017-01-17] MEDS: DONEPEZIL 10 MG TABLET PO SCH ×2 (07:59→21:51)
--- NOTE | 2017-01-17 08:27 | XRay Report ---
CLINICAL INFORMATION: Follow pneumonia COMPARISON: 01/14/2017 FINDINGS: The heart is mildly enlarged, but unchanged. Right-sided Port-A-Cath tip is in stable satisfactory position. Mediastinum and pulmonary vessels are normal. Moderate sized infiltrate versus infiltrate-like mass in the right midlung has worsened slightly. Small patchy infiltrate in the left midlung and base also worsening. Small bilateral pleural effusions are stable IMPRESSION: Moderate sized infiltrate versus infiltrate-like mass in the right midlung slight progression. Moderate patchy infiltrate in the left midlung and base also progressing. Consider aspiration Interpreted and Authenticated by: José Miguel Lindsay 01/17/17
[2017-01-17] MEDS: PROPAFENONE 150 MG TABLET PO SCH ×2 (09:55→21:50)
--- NOTE | 2017-01-17 11:08 | Internal Med Progress Note ---
Medical - PN: Subj Patient information: Note initiated : 01/17/17 at 11:07 am Service Date, if different from initiated Date: [] Patient: Ashkan Alfred 81 y/o M admitted on 01/14/17 for weakness, cough, falls, SOB, sores. Chief Complaint: [] Interval history: January 14, 2017: History of present illness: Mr. Alfred is a 81 year old male who lives in [facility], presents to the ER with complaints of recurrent falls over the last few days, feeling weak and tired unable to care for himself. 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 The patient since october has not been doing well, his at that time and since then t here has been a gradual decline in his overall health.The patient over the last few days has had recurrent episodes of falling, no obvious injuries reported. the patient has also had increased shortness of breath and some wet cough, (he usually has dry cough). There is no reported fever or chills. The patient was therefore brought in for further evaluation. In the ER it was noted he was hypoxic, and his Chest x ray suggestive of PNA, his lactic acid is normal, bp st able. He was admitted to the hospital for further management. He is DNR POA is son, who is on vacation, Daughter was at bedside who provided most history, patient has dementia but can answer some questions. 01/15: Patient seen examined, overnight his condition had worsened, he was more short of breath with increased oxygen requirement and increased crackles on exam. He was given 20mg IV lasix, IVF stopped, he also had prolonged exp phase and was started on IV steroids for copd flare up. This AM his breathing is better, his air entry is better and he is on 3L nc. He is DNR, family updated about poor prognosis. Patient will continue on IV antibiotics for now. Microbiology pending. pt remains non verbal, makes mumbling sounds, does not answer questions. 01/16: Patient seen examined, no acute overnight issues, pt non verbal, still on 3-4 L oxygen. I discussed patients condition with his family again yesterday, two children are here, the POA is here. The other son Daksha is in [place], who I called to give an update. It seems the siblings here and Daksha do not agree with the plan of care. The son Daksha Alfred seemed to have the idea that the paroxetine was the culprit in the patients mental condition. Although he did agree that dementia meds are necessary. I explained to him that at this time we need to treat the infection and I will leave the decision of anti depressant medication adjustment to his PCP. January 17: today, the patient is obtunded. He really does not respond to either verbal stimulation or to touch. the nurses noted he did have some increased agitation last night and tried to pull out his lines. He received Ativan for his agitation , and eventually went back to sleep. His family has reported that he has had a gradual decline in functioning since October of this year, when his . he also recently underwent radiation treatment for a lung metastasis, reportedly due to previous colon cancer history. he continues to require oxygen to maintain O2 saturations. He is unable to answer any questions. - Constitutional Vitals: Vital Signs Temp Pulse Resp BP Pulse Ox 98.1 F 88 18 131/94 92 01/17/17 08:00 01/17/17 08:21 01/17/17 08:21 01/17/17 08:00 01/17/17 08:00 Period Temp Pulse Resp BP Sys/Anne Pulse Ox Last 24 Hr 97.9 F-98.1 F 72-89 16-20 124-160/83-140 92-95 Intake and Output 01/16/17 01/17/17 01/17/17 21:59 05:59 13:59 Intake Total 150 / 150 50 / 50 50 / 50 Output Total 2 / 2 Balance 148 / 148 45 / 45 49 / 49 Weight 145 lb 9.6 oz Intake & Output: Intake & Output 01/16/17 01/17/17 01/17/17 21:59 05:59 13:59 Intake Total 150 / 150 50 / 50 50 / 50 Output Total 2 / 2 Balance 148 / 148 45 / 45 49 / 49 Weight 145 lb 9.6 oz Intake: IV 50 / 50 50 / 50 50 / 50 Zosyn 3.375 gm In 50 / 50 50 / 50 50 / 50 Dextrose 5% in Water 50 ml @ 100 mls/hr IV Q6H [facility] Rx#:[id number] Oral 100 / 100 Output: # of times incontinent of 2 / 2 5 / 5 urine Other: Meal Dinner Percent of Meal Consumed 40 Feeding Ability Total Assistance # Voids 2 1 on exam, he is obtunded. Neck shows no obvious JVD. Cardiac examshows regular rate and rhythm. Lungs: Have diffusely coarse breath sounds, without significant wheezing. Abdomen is soft, with normal bowel sounds. Extremities: Show no significant edema. Neurologic exam:Patient is obtunded, and probably still sedated from the Ativan he received overnight. Medical - PN: Obj Da - Labs CBC & Chem 7: 01/17/17 03:59 01/17/17 03:59 Labs: Abnormal Lab Results 01/17/17 01/17/17 01/16/17 03:59 03:59 03:53 RBC 3.68 L Hgb 11.5 L Hct 34.6 L RDW 15.9 H Gran % 95.7 H Lymph % (Auto) 2.1 L Gran # 8.3 H Lymph # (Auto) 0.2 L BUN 30 H 28 H Glucose 152 H 153 H AST 41 H Alkaline Phosphatase Lactate Dehydrogenase 284 H 300 H 01/16/17 01/15/17 01/15/17 03:53 03:46 03:46 RBC 3.91 L 3.71 L Hgb 12.1 L 11.7 L Hct 36.2 L 34.9 L RDW 15.4 H 15.6 H Gran % 94.2 H 95.1 H Lymph % (Auto) 3.2 L 3.4 L Gran # 8.9 H Lymph # (Auto) 0.3 L 0.2 L BUN Glucose 122 H AST Alkaline Phosphatase 125 H Lactate Dehydrogenase 259 H january 17: Chest x-ray: Moderate sized infiltrate versus mass in the right mid lung, with slight progression. Moderate patchy infiltrate in the left mid lung and base, also progressing. Consider aspiration. small bilateral pleural effusions. January 14: -Urinalysis showed 30 mg of protein, positive occult blood, negative nitrites and leukocyte esterase. -blood cultures are negative so far. -MRSA screen was negative. EKG: Irregular rhythm, possible atrial fibrillation. Nonspecific intraventricular conduction delay. Meds: Medications Acetaminophen (Tylenol) 650 mg PO Q6HP PRN PRN Reason: PAIN/FEVER > 101 Hydrocodone Bitart/Acetaminophen ([place] 5/325mg) 1 tab PO Q4HP PRN PRN Reason: Pain Last Admin: 01/17/17 07:58 Dose: 1 tab Albuterol/Ipratropium (Duoneb) 3 ml NEB Q4HRT [facility] Last Admin: 01/17/17 08:18 Dose: 3 ml Donepezil HCl (Aricept) 5 mg PO BID [facility] Last Admin: 01/17/17 07:59 Dose: 5 mg Heparin Sodium (Porcine) (Heparin Flush) 2 ml IV Q12 [facility] Last Admin: 01/17/17 07:42 Dose: 2 ml Piperacillin Sod/Tazobactam (Sod 3.375 gm/ Dextrose) 50 mls @ 100 mls/hr IV Q6H [facility] Last Infusion: 01/17/17 06:30 Dose: Infused Lorazepam (Ativan) 0.25 mg PO BID PRN PRN Reason: ANXIETY/SEDATION Last Admin: 01/16/17 09:12 Dose: 0.25 mg Lorazepam (Ativan) 0.5 - 1 mg IV Q2HP PRN PRN Reason: ANXIETY/SEDATION Last Admin: 01/17/17 07:42 Dose: 0.5 mg Memantine (Namenda) 10 mg PO BID [facility] Last Admin: 01/17/17 07:58 Dose: 10 mg Methylprednisolone Sodium Succinate (Solu-Medrol) 62.5 mg IV Q8 [facility] Last Admin: 01/17/17 05:43 Dose: 62.5 mg Metoprolol Succinate (Toprol Xl) 25 mg PO DAILY [facility] Last Admin: 01/17/17 07:42 Dose: 25 mg Naloxone HCl (Narcan) 0.1 mg IV Q2MIN PRN PRN Reason: Opiate Reversal Apixaban 2.5 Mg (Tablet) 1 dose PO BID [facility] Stop: 01/17/17 22:00 Last Admin: 01/17/17 07:42 Dose: 1 dose Ondansetron HCl (Zofran) 4 mg IV Q4HP PRN PRN Reason: Nausea And Vomiting Paroxetine HCl (Paxil) 10 mg PO DAILY [facility] Last Admin: 01/17/17 07:59 Dose: 10 mg Propafenone HCl (Rythmol) 225 mg PO BID [facility] Last Admin: 01/17/17 09:55 Dose: 225 mg Sodium Chloride (Saline Flush) 10 ml IV Q8 [facility] Last Admin: 01/17/17 05:44 Dose: 10 ml Sodium Chloride (Saline Flush) 10 ml IV Q8 [facility] Last Admin: 01/17/17 05:49 Dose: Not Given Vancomycin HCl (Vancomycin Per Pharmacy) 1 order IV UD [facility] Medical - PN: A/P - Time Spent With Patient Total time spent is greater than 50% in coordination of care (as documented) at patient's floor/unit and/or counseling patient: 25 - 35 minutes - Narrative A/P Narrative: #1. Infectious disease. -Health care associated pneumonia: IV vanco and zosyn, for same, await results of culture. possible aspiration, zosyn should cover. patient is afebrile, with normal total white blood cell count, however granulocyte count has been a bit elevated the last 2 days. #2. Pulmonary.acute hypoxic respiratory failure. The patient has bilateral infiltrates versus mass. He does have a recent history of metastatic lung lesions, and radiation. Radiation pneumonitis might also be a concern. continue supplemental oxygen and bronchodilators as needed. -possible COPD exacerbation. On IV steroids, DuoNeb's. #3. Disposition: This patient appears to have a very poor functional status, and certainly cannot live alone in his current state. It sounds like he has had a downward decline since his 2 months ago. 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 #4. Neurologic. The patient does have underlying dementia, and has frequent episodes of agitation, which respond fairly well to Ativan. continue Aricept and memantine. anxiety/ depression: on paroxitine and prn ativan will continue same, Daksha alfred,(son in [place]) has some concerns with its use, advised to discuss with siblings and his pcp. #5. Cardiac. -Afib: ON beta blockers, propafenone and eliquis continue same. Rate well controlled #6.code status: DNR #7. DVT prophylaxis:continue Eliquis. Prognosis guarded. this visit took approximately 25 minutes today, to review his record and test results, examine him, review plan of care with nursing staff. Medical - PN: Qual - VTE Deep Vein Thrombosis/Pulmonary Embolism Present on Admission: No
[2017-01-17] MEDS ORDERED: NALOXONE HCL 0.4 MG/ML VIAL IV PRN (11:13)
[2017-01-17] MEDS ORDERED: ONDANSETRON 4 MG/2 ML VIAL IV PRN (11:13)
[2017-01-17] MEDS ORDERED: LORazepam 0.5 MG TABLET PO PRN (11:13)
[2017-01-17] MEDS ORDERED: VANCOMYCIN PER PHARMACY IV SCH (11:13)
[2017-01-17] MEDS ORDERED: ACETAMINOPHEN 325 MG TABLET PO PRN (11:13)
[2017-01-17] MEDS: VANCOMYCIN 1,500 MG in 0.9 % SODIUM CHLORIDE 500 ML IV SCH (13:31)
[2017-01-17] MEDS ORDERED: NON FORMULARY MEDICATION 1 DOSE MISCELL (Apixaban [Eliquis] 2.5 MG) PO SCH (21:00)
[2017-01-17] MEDS ORDERED: PROPAFENONE 225 MG PO SCH (21:00)
[2017-01-17] MEDS: APIXABAN 5 MG TABLET PO SCH (21:52)
[2017-01-18] MEDS: PIPERACILLIN SODIUM/TAZOBACTAM 3.375 GM in DEXTROSE 5% IN WATER 50 ML IV SCH ×3 (00:36→13:29)
[2017-01-18] MEDS: IPRATROPIUM/ALBUTEROL 3 ML AMPUL.NEB NEB SCH ×2 (00:37→06:55)
[2017-01-18] MEDS: HYDROcodone/APAP 5/325MG TABLET PO PRN (04:08)
[2017-01-18 05:29] LABS: Basophils # (Auto) 0 K/mcL (0.0-0.3); Basophils % (Auto) 0 % (0.0-2.0); Eosinophils # (Auto) 0 K/mcL (0.0-0.7); Eosinophils % (Auto) 0.2 % (0.0-7.0); Granulocytes % (Auto) 94.7 % (38.0-78.0); Lymphocytes # (Auto) 0.2 K/mcL (1.5-4.8); Lymphocytes % (Auto) 2.2 % (15.5-49.0); Mean Cell Volume 93.2 fL (80.0-100.0); Mean Corpuscular HGB Conc 33.5 g/dL (31.0-36.0); Mean Corpuscular Hemoglobin 31.3 pg (26.0-34.0); Monocytes # (Auto) 0.3 K/mcL (0.1-0.9); Monocytes % (Auto) 2.9 % (1.0-12.0); Platelet Count 241 K/mcL (140-440); RBC 4.17 M/mcL (4.50-5.90); Red Cell Distribution Width 15.7 % (11.5-14.5)
[2017-01-18 05:44] LABS: ALT/SGPT 71 U/l (0-40); Albumin 3.7 gm/dL (3.2-5.2); Albumin/Globulin Ratio 1.2 (1.0-2.3); Alkaline Phosphatase 103 U/L (39-117); Bilirubin,Direct 0.4 mg/dL (0.0-0.3); Blood Urea Nitrogen 22 mg/dl (8-23); Gamma Glutamyl Transpeptidase 72 U/L (8-61); Magnesium 2.2 mg/dL (1.6-2.5); Uric Acid 2.9 mg/dL (2.5-8.0)
[2017-01-18] MEDS: 0.9 % SODIUM CHLORIDE 10 ML SYRINGE IV SCH ×2 (06:04)
[2017-01-18] MEDS ORDERED: PARoxetine 20 MG TABLET PO SCH (09:00)
[2017-01-18] MEDS ORDERED: APIXABAN 5 MG TABLET PO SCH ×2 (09:00)
[2017-01-18] MEDS ORDERED: METOPROLOL SUCCINATE 25 MG TAB.XL.24H PO SCH (09:00)
[2017-01-18] MEDS: methylPREDNISolone SOD SUCC 125 MG/2 ML VIAL IV SCH (11:08)
[2017-01-18] MEDS: APIXABAN 5 MG TABLET PO SCH (13:28)
[2017-01-18] MEDS: DONEPEZIL 10 MG TABLET PO SCH (13:28)
[2017-01-18] MEDS: MEMANTINE 10 MG TABLET PO SCH (13:28)
[2017-01-18] MEDS: PROPAFENONE 150 MG TABLET PO SCH (13:29)
[2017-01-18] MEDS: VANCOMYCIN 1,500 MG in 0.9 % SODIUM CHLORIDE 500 ML IV SCH (13:29)
[2017-01-18] MEDS: LORazepam 2 MG/ML VIAL IV PRN (13:30)
--- NOTE | 2017-01-18 14:38 | Discharge Summary ---
Medical - DS: Prov Patient information: Note initiated : 01/18/17 at 2:35 pm Patient: Ashkan Alfred 81 y/o M admitted on 01/14/17 for weakness, cough, falls, SOB, sores. Date of admission: 01/14/17 15:55 Discharge date: 01/18/17 Primary care physician: Nikita Olvera Admitting clinician: Clark Henry Consults: 01/15/17 08:14 Consult to Physician [CONS] Routine Comment: wound consult Consulting Provider: Quan Blanco Reason For Exam: Physician to Consult Attending physician on discharge: Haleigh Guzman Medical - DS: Meds - Discharge Medications Prescriptions: Acetaminophen [Tylenol] 650 mg PO Q6HP PRN #1 tablet PRN Reason: Pain/Fever > 101 Albuterol Sulfate 2.5 mg IH Q4HP PRN #1 ml PRN Reason: Shortness Of Breath Or Wheezing LORazepam [Ativan] 0.5 - 1 mg IV Q2HP PRN #1 vial PRN Reason: Anxiety/Sedation morphine 2 mg IV Q4HP PRN #1 syringe PRN Reason: Pain Active and Home Medications: discharge medications will include: Morphine 1-2 mg IV every 2 hours when necessary Ativan0.5-1 mg IV every 4 hours when necessary anxiety or agitation Albuterol nebulizer treatments when necessary Oxygen when necessary respiratory distress discontinue: propafenone, MiraLAX Paxil, metoprolol amantadine, donepezil, oral Ativan, Eliquis, [place], duo nebs heparin Zosyn, Solu-Medrol, vancomycin Previous Home Medications donepezil 5 mg tablet 5 mg PO BID #1 tab 12/10/16 [Rx Confirmed 01/14/17 Last Taken Unknown] memantine 10 mg tablet 10 mg PO BID #1 tab 12/10/16 [Rx Confirmed 01/14/17 Last Taken Unknown] lorazepam 0.5 mg tablet 0.25 mg PO BID PRN #30 tab 12/30/16 [Rx Confirmed Last Taken Unknown] Apixaban [Eliquis] 2.5 mg PO BID 01/14/17 [History Confirmed 01/14/17 Last Taken Unknown] LORazepam [Ativan] 0.25 mg PO BID PRN 01/14/17 [History Confirmed 01/14/17 Last Taken Unknown] Metoprolol Succinate 25 mg PO QDAY 01/14/17 [History Confirmed 01/14/17 Last Taken Unknown] Miralax 1 pkg PO QDAY 01/14/17 [History Confirmed 01/14/17 Last Taken Unknown] PARoxetine 10 mg PO QDAY 01/14/17 [History Confirmed 01/14/17 Last Taken Unknown ] Paxil 10 mg PO QDAY 01/14/17 [History Confirmed 01/14/17 Last Taken Unknown] Propafenone 225 mg PO BID 01/14/17 [History Confirmed 01/14/17 Last Taken Unknown] Remedy Calazime Skin Paste 1 dose TOPICAL BID 01/14/17 [History Confirmed Last Taken Unknown] Tylenol 325 mg PO PRN PRN 01/14/17 [History Confirmed 01/14/17 Last Taken Unknown] Medical - DS: Hosp Hospital course: Mr. Alfred is a 81 year old M January 14, 2017: History of present illness: Mr. Alfred is a 81 year old male who lives in [facility], presents to the ER with complaints of recurrent falls over the last few days, feeling weak and tired unable to care for himself. 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 The patient since october has not been doing well, his at that time and since then t here has been a gradual decline in his overall health.The patient over the last few days has had recurrent episodes of falling, no obvious injuries reported. the patient has also had increased shortness of breath and some wet cough, (he usually has dry cough). There is no reported fever or chills. The patient was therefore brought in for further evaluation. In the ER it was noted he was hypoxic, and his Chest x ray suggestive of PNA, his lactic acid is normal, bp st able. He was admitted to the hospital for further management. He is DNR POA is son, who is on vacation, Daughter was at bedside who provided most history, patient has dementia but can answer some questions. 01/15: Patient seen examined, overnight his condition had worsened, he was more short of breath with increased oxygen requirement and increased crackles on exam. He was given 20mg IV lasix, IVF stopped, he also had prolonged exp phase and was started on IV steroids for copd flare up. This AM his breathing is better, his air entry is better and he is on 3L nc. He is DNR, family updated about poor prognosis. Patient will continue on IV antibiotics for now. Microbiology pending. pt remains non verbal, makes mumbling sounds, does not answer questions. 01/16: Patient seen examined, no acute overnight issues, pt non verbal, still on 3-4 L oxygen. I discussed patients condition with his family again yesterday, two children are here, the POA is here. The other son Daksha is in [place], who I called to give an update. It seems the siblings here and Daksha do not agree with the plan of care. The son Daksha Alfred seemed to have the idea that the paroxetine was the culprit in the patients mental condition. Although he did agree that dementia meds are necessary. I explained to him that at this time we need to treat the infection and I will leave the decision of anti depressant medication adjustment to his PCP. January 17: today, the patient is obtunded. He really does not respond to either verbal stimulation or to touch. the nurses noted he did have some increased agitation last night and tried to pull out his lines. He received Ativan for his agitation , and eventually went back to sleep. His family has reported that he has had a gradual decline in functioning since October of this year, when his . he also recently underwent radiation treatment for a lung metastasis, reportedly due to previous colon cancer history. he continues to require oxygen to maintain O2 saturations. He is unable to answer any questions. January 18: The patient has continued to decline. He is mostly obtunded. When he is awake , he is either agitated, or very confused. He is taking in very little of anything by mouth. i am unable to wake him up, when I enter the room. He seems to be in a deep sleep. He does not respond to voice or touch. On exam, again he is obtunded. neck shows no obvious JVD. Cardiac exam hest regular rate and rhythm. Lungs have diffusely coarse breath sounds, with scattered rhonchi, bilaterally. Respirations otherwise do not appear labored. Abdomen: Is soft, and appears nontender. extremities: Show no significant edema. assessment and plan: #1. Disposition: clinically, the patient is not improving, and appears to be declining. The social services designee and I met with 2 of the patient's 3 children today. His son Fer is his POA. We discussed his father's end-of-life wishes, and he notes that the patient has been quite clear lately that he does not want to keep trying to stay alive We discussed that at this point it does not seem either practical or ethical to keep forcing aggressive care on the patient. At this time, the POA is willing to move the patient to comfort care and his sister is in agreement. They did request that I call the other son, Alexandre I did call him and discuss the situation with him. He reluctantly agrees that comfort care is probably the only option. he initially said he could not come here, because of work, but then called back just now, to say that he has rearranged his travel plans, and will be arriving tomorrow. Raquel of case management did arrange for the patient to be discharged from here to swing bed status, so that we can continue to care for the patient here, rather than having to go through the upheaval sending him to another facility. This is the family's preference. #2. Infectious disease. -Health care associated pneumonia: he was treated with IV Zosyn and vancomycin, and while vital signs are fairly stable, his x-ray has looked worse. #3. Pulmonary.acute hypoxic respiratory failure. The patient has bilateral infiltrates versus mass. He does have a recent history of metastatic lung lesions, and radiation. Radiation pneumonitis might also be a concern. continue supplemental oxygen and bronchodilators as needed for comfort.. It sounds like he has had a downward decline since his 2 months ago. continue discussions with the family about goals, as above. #4. Neurologic. The patient does have underlying dementia, and has frequent episodes of agitation, which respond fairly well to Ativan. #6.code status: DNR Discharge diagnosis: Pneumonia. Metastatic cancer. Respiratory failure. - Time Spent with Patient Total time spent providing and/or coordinating discharge services: Greater than 30 minutes (approximately 45 minutes was spent today, examining the patient reviewing test results, meeting with the patient's family, and then having to phone calls with the patient's other son, Alexandre, and writing orders.) Medical - DS: Exam - Constitutional Vitals: Vital Signs Temp Pulse Pulse Pulse Resp BP BP 01/18/17 11:49 97.4 F 18 144/93 01/18/17 07:42 98.0 F 20 153/93 01/18/17 07:27 110 H 20 01/18/17 07:24 80 20 01/18/17 04:00 98.1 F 92 H 20 158/90 01/18/17 00:00 97.8 F 86 20 01/17/17 20:00 97.6 F 88 20 128/65 01/17/17 19:32 86 18 01/17/17 19:26 01/17/17 19:25 01/17/17 15:31 97.5 F 20 161/76 Pulse Ox 01/18/17 11:49 95 01/18/17 07:42 97 01/18/17 07:27 95 01/18/17 07:24 01/18/17 04:00 93 01/18/17 00:00 98 01/17/17 20:00 96 01/17/17 19:32 01/17/17 19:26 96 01/17/17 19:25 96 01/17/17 15:31 Intake and Output 01/18/17 01/18/17 01/18/17 05:59 13:59 21:59 Intake Total 50 / 50 Output Total 3 / 3 Balance 49 / 49 -3 / -3 Intake: IV 50 / 50 Zosyn 3.375 gm In 50 / 50 Dextrose 5% in Water 50 ml @ 100 mls/hr IV Q6H [facility] Rx#:[id number] Output: # of times incontinent of / 3 / 3 urine Other: Meal Applesauce with meds Percent of Meal Consumed 50% Feeding Ability Total Assistance # Voids 1 # of times incontinent of 1 Bowels Medical - DS: Data Labs on day of discharge: Labs from last 24 hours 01/18/17 01/18/17 04:25 04:25 WBC 9.4 RBC 4.17 L Hgb 13.0 L Hct 38.9 L MCV 93.2 MCH 31.3 MCHC 33.5 RDW 15.7 H Plt Count 241 MPV 8.0 Gran % 94.7 H Lymph % (Auto) 2.2 L [place] % (Auto) 2.9 Eos % (Auto) 0.2 Baso % (Auto) 0 Gran # 8.9 H Lymph # (Auto) 0.2 L [place] # (Auto) 0.3 Eos # (Auto) 0 Baso # (Auto) 0 Sodium 136 Potassium 3.9 Chloride 96 Carbon Dioxide 30 Anion Gap 10.0 BUN 22 Creatinine 0.9 GFR Calculation 80 Glucose 142 H Uric Acid 2.9 Calcium 9.0 Phosphorus 3.0 Magnesium 2.2 Total Bilirubin 1.0 Direct Bilirubin 0.4 H GGT 72 H AST 68 H ALT 71 H Alkaline Phosphatase 103 Lactate Dehydrogenase 313 H Total Protein 6.8 Albumin 3.7 Globulin 3.1 Albumin/Globulin Ratio 1.2 Triglycerides 85 january 17: Chest x-ray: Moderate sized infiltrate versus mass in the right mid lung, with slight progression. Moderate patchy infiltrate in the left mid lung and base, also progressing. Consider aspiration. small bilateral pleural effusions. January 14: -Urinalysis showed 30 mg of protein, positive occult blood, negative nitrites and leukocyte esterase. -blood cultures are negative so far. -MRSA screen was negative. EKG: Irregular rhythm, possible atrial fibrillation. Nonspecific intraventricular conduction delay. Medical - DS: A/P - Patient/Caregiver Discharge Instructions Activity: increase activity as tolerated Diet: Regular Diet Additional Instructions: See swing bed admit orders. Prescriptions: Acetaminophen [Tylenol] 650 mg PO Q6HP PRN #1 tablet PRN Reason: Pain/Fever > 101 Albuterol Sulfate 2.5 mg IH Q4HP PRN #1 ml PRN Reason: Shortness Of Breath Or Wheezing LORazepam [Ativan] 0.5 - 1 mg IV Q2HP PRN #1 vial PRN Reason: Anxiety/Sedation morphine 2 mg IV Q4HP PRN #1 syringe PRN Reason: Pain - Follow up Plan Follow up with: Nikita Olvera MD [Primary Care Provider] - Disposition: [facility] Swing Bed Prognosis: Critical Rehab Potential: Critical I certify that the patient requires SNF services: Yes Medical - DS: Qual - VTE Deep Vein Thrombosis/Pulmonary Embolism Present on Admission: No
== END 2017-01-18 14:40 | disposition other institution (70) | DRG 190 ==
LOC: ED 12:33 → ICU 13:55 → SUATTDRO 15:55 → ICU 15:55 → MEDSUR 01-17 12:23
PROVIDERS: ADMIT Internal Medicine; ATTEND Internal Medicine

== ENCOUNTER 2017-01-18 12:49 | Inpatient (IN) ==
[2017-01-18] MEDS ORDERED: ACETAMINOPHEN 500 MG TABLET PO PRN (18:04)
[2017-01-18] MEDS ORDERED: ALBUTEROL SULFATE 2.5 MG/3 ML NEBULIZER INH PRN (18:35)
[2017-01-18] MEDS ORDERED: ONDANSETRON 4 MG/2 ML VIAL IV PRN (18:35)
[2017-01-18] MEDS ORDERED: ACETAMINOPHEN 325 MG TABLET PO PRN (18:35)
[2017-01-18] MEDS: 0.9 % SODIUM CHLORIDE 10 ML SYRINGE IV SCH ×2 (22:03→22:04)
[2017-01-18] MEDS: [UNRECOGNIZED DRUG - OTHER] TOPICAL SCH (22:04)
[2017-01-18] MEDS: LORazepam 2 MG/ML VIAL IV PRN (22:04)
[2017-01-19] MEDS: LORazepam 2 MG/ML VIAL IV PRN ×4 (02:06→22:26)
[2017-01-19] MEDS: 0.9 % SODIUM CHLORIDE 10 ML SYRINGE IV SCH ×8 (02:07→22:26)
[2017-01-19] MEDS ORDERED: DOCUSATE SODIUM 100 MG CAPSULE PO PRN (06:28)
--- NOTE | 2017-01-19 10:11 | Internal Med History&Physical ---
Medical - H&P: [facility] Patient information: Note initiated : 01/19/17 at 10:09 am Patient: Ashkan Alfred 81 y/o M admitted on 01/18/17 for Pneumonia. History of present illness: Mr. Alfred is a 81 year old M This 81-year-old man was admitted to the hospital on January 14, 2017 with pneumonia and altered mental status. He had been declining markedly over the last couple of months, since the of his . He was admitted and treated with IV fluids and IV antibiotics, etc. He has continued to have episodes of confusion and agitation, interrupting episodes of generally being obtunded. He has been nonverbal for most of his stay. He really did not show any significant clinical improvement with treatment. His overall debilities were reviewed with his son Fer, who is his POA, as well as his daughter and his other son. Ultimately, they all agreed that the patient would not want to continue aggressive care, and would rather let nature take its course. He was discharged to swing bed status yesterday. Last evening we started comfort care measures. Today, the patient remains obtunded. He does not respond at all to me, but nurses say occasionally he will moan. He has no purposeful or intelligible speech. He does not follow commands. He had a follow-up swallow eval this morning, and they confirm that he really is not safe to swallow anything. He is unable to give a history. Medical History Anxiety (Chronic ~1999) Arthritis (Chronic) Colon cancer (Chronic ~2004) Daytime sleepiness (Chronic ~2009) Dementia (Chronic ~2012) Heart trouble (Chronic ~1999) History of tobacco abuse (Chronic) Lung cancer (Chronic ~2007) status post recent radiation treatments for a metastasis in his lung. Past Surgical History H/O colonoscopy (Chronic) History of herniorrhaphy (Chronic ~2012) History of intestinal surgery (Chronic ~2004) History of lung surgery (Chronic) Family History Father Heart attack Social History marital status: smoking status: Former smoker alcohol intake frequency: does not drink substance use type: does not use He has a son and daughter that live in the area, and one son that lives out of town. Medical - H&P: Meds Home Medications Medication Instructions Recorded Confirmed Type donepezil 5 mg tablet 5 mg PO BID #1 tab 12/10/16 01/18/17 Rx memantine 10 mg tablet 10 mg PO BID #1 tab 12/10/16 01/18/17 Rx lorazepam 0.5 mg tablet 0.25 mg PO BID PRN #30 tab 12/30/16 01/18/17 Rx Apixaban [Eliquis] 2.5 mg PO BID 01/14/17 01/18/17 History LORazepam [Ativan] 0.25 mg PO BID PRN 01/14/17 01/18/17 History Metoprolol Succinate 25 mg PO QDAY 01/14/17 01/18/17 History Miralax 1 pkg PO QDAY 01/14/17 01/18/17 History PARoxetine 10 mg PO QDAY 01/14/17 01/18/17 History Paxil 10 mg PO QDAY 01/14/17 01/18/17 History Propafenone 225 mg PO BID 01/14/17 01/18/17 History Remedy Calazime Skin Paste 1 dose TOPICAL BID 01/14/17 01/18/17 History Tylenol 325 mg PO PRN PRN 01/14/17 01/18/17 History 0.9 % Sodium Chloride [Saline 10 ml IV Q8 01/18/17 01/18/17 Rx Flush] 0.9 % Sodium Chloride [Saline 10 ml IV Q8 #1 01/18/17 01/18/17 Rx Flush] Acetaminophen [Tylenol] 650 mg PO Q6HP PRN #1 tablet 01/18/17 01/18/17 Rx Albuterol Sulfate 2.5 mg IH Q4HP PRN #1 ml 01/18/17 01/18/17 Rx Heparin Flush 2 ml IV Q12 01/18/17 01/18/17 Rx LORazepam [Ativan] 0.5 - 1 mg IV Q2HP PRN #1 vial 01/18/17 01/18/17 Rx Ondansetron [Zofran] 4 mg IV Q4HP PRN vial 01/18/17 01/18/17 Rx morphine 2 mg IV Q4HP PRN #1 syringe 01/18/17 01/18/17 Rx Allergies Allergy/AdvReac Type Severity Reaction Status Date / Time No Known Drug Allergies Allergy Unverified 12/10/16 15:44 Medical - H&P: Exam - Constitutional Vitals: Temp Pulse Resp BP Pulse Ox 97.3 F 105 H 20 139/94 93 01/19/17 07:00 01/19/17 07:15 01/19/17 07:00 01/19/17 07:00 01/19/17 07:15 On exam, he remains obtunded. Head: Normocephalic, atraumatic. Eyes: He does not cooperate with exam. Neck: Appears supple, but he does not participate in exam. There is no obvious JVD, thyromegaly, bruits, lymphadenopathy. Cardiac exam: Shows regular rate and rhythm, with normal S1 and S2. No murmurs , rubs, gallops are noted. Lungs: Suboptimal exam, there are scattered crackles noted, but no significant rhonchi or wheezes are noted at this time. Abdomen is soft and nontender, without obvious masses. Bowel sounds are active. Extremities: Show no significant edema. Skin exam: Does not show obvious rash or other worrisome lesions. Neurologic exam: The patient is obtunded, and unable to participate in an exam. Medical - H&P: Reslt - Labs Labs: January 18: CBC showed white blood cell count of 9000, hemoglobin 13, hematocrit 38, RDW 15 , platelets 241,000. Absolute neutrophil count was 8900. Chemistry panel showed normal electrolytes, with glucose of 142. AST was elevated at 68, ALT 71, direct bili 0.4, GGT 72, LDH 313. These were all increased. january 17: Chest x-ray: Moderate sized infiltrate versus mass in the right mid lung, with slight progression. Moderate patchy infiltrate in the left mid lung and base, also progressing. Consider aspiration. small bilateral pleural effusions. January 14: -Urinalysis showed 30 mg of protein, positive occult blood, negative nitrites and leukocyte esterase. -blood cultures are negative so far. -MRSA screen was negative. EKG: Irregular rhythm, possible atrial fibrillation. Nonspecific intraventricular conduction delay. Medical - H&P: A/P - Narrative A/P Narrative: #1. Disposition: At this time, the POA is willing to move the patient to comfort care and his sister is in agreement. They did request that I call the other son, Alexandre I did call him and discuss the situation with him. He reluctantly agreed that comfort care is probably the only option. he initially said he could not come here, because of work, but then called back just now, to say that he has rearranged his travel plans, and will be today. -Comfort Care orders were instituted. -IV Ativan and morphine as needed, oxygen and albuterol nebulizers as needed. Skin and wound care as needed. We will check with the family about whether they would like us to place a Tay catheter, given that the patient's carmen-care seems to cause a fair amount of agitation. There is a lot of irritation of the scrotum, from urine incontinence , according to nursing. #2. Infectious disease. -Health care associated pneumonia: he was treated with IV Zosyn and vancomycin, and while vital signs were fairly stable, his x-ray has looked worse, and there was some suggestion of possible spread of cancer.. #3. Pulmonary.acute hypoxic respiratory failure. The patient has bilateral infiltrates versus mass. He does have a recent history of metastatic lung lesions, and radiation. Radiation pneumonitis might also be a concern. continue supplemental oxygen and bronchodilators as needed for comfort.. #4. Neurologic. The patient does have underlying dementia, and has frequent episodes of agitation, which respond fairly well to Ativan. #6.code status: DNR Approximately 35 minutes was spent today, examining the patient, reviewing plan of care with our multidisciplinary team, and writing orders. Medical - H&P: Qual - VTE Deep Vein Thrombosis/Pulmonary Embolism Present on Admission: No
[2017-01-19] MEDS: [UNRECOGNIZED DRUG - OTHER] TOPICAL SCH ×2 (15:51→22:26)
[2017-01-19] MEDS: LACTOPEROXI/GLUC OXID/POT THIO 1 EACH GEL..EA. TOPICAL PRN (22:40)
[2017-01-20] MEDS: 0.9 % SODIUM CHLORIDE 10 ML SYRINGE IV SCH ×3 (01:14→14:19)
[2017-01-20] MEDS: LORazepam 2 MG/ML VIAL IV PRN ×3 (01:15→11:56)
[2017-01-20] MEDS: LACTOPEROXI/GLUC OXID/POT THIO 1 EACH GEL..EA. TOPICAL PRN ×4 (07:11→12:47)
--- NOTE | 2017-01-20 09:00 | General Surgery Progress Note ---
Subjective Patient reports: other (Patient seen with SHERIE Carrion on [facility] floor. Worsening PNA. SKin abrasions Left hand, Right fore arm and knee and sacral area, NOW DNR and TECHNOLOGY INTERN) Narrative: Note initiated : 01/20/17 at 8:57 am Service Date, if different from initiated Date: [] Patient: Ashkan Alfred 81 y/o M admitted on 01/18/17 for Pneumonia. Chief Complaint: [] Objective Temp Pulse Resp BP Pulse Ox 97.5 F 89 12 118/82 87 L 01/20/17 07:29 01/20/17 05:54 01/20/17 07:29 01/20/17 07:29 01/20/17 07:29 Drowsy. Comfortable. Responds to painful stimuli during wound check with nursing staff. Pulse irregular. LUNGS crackles and rhonchi. Soft abdomen. Wounds examined. Clean and dry. CONTINUE ongoing supportive wound care. - Additional Data Intake & Output - Last 24 hours: Intake & Output 01/18/17 01/19/17 01/20/17 01/21/17 05:59 05:59 05:59 05:59 Intake Total 0 / 0 0 / 0 Output Total 3 / 3 6 / 6 Balance -3 / -3 -6 / -6 Weight 145 lb Assessment and Plan - Time Spent With Patient Total time spent is greater than 50% in coordination of care (as documented) at patient's floor/unit and/or counseling patient: Deteriorating pneumonia. DNR and TECHNOLOGY INTERN CONTINUE supportive wound care. NOTHING more to add. Will sign off . Call again PRN or for any Qs or change in status. less than 15 minutes
[2017-01-20] MEDS: [UNRECOGNIZED DRUG - OTHER] TOPICAL SCH (09:40)
--- NOTE | 2017-01-20 12:01 | Internal Med Progress Note ---
Medical - PN: Subj Patient information: Note initiated : 01/20/17 at 12:01 pm Service Date, if different from initiated Date: [] Patient: Ashkan Alfred 81 y/o M admitted on 01/18/17 for Pneumonia. Chief Complaint: [] Interval history: January 19, 2017: History of present illness: Mr. Alfred is a 81 year old M This 81-year-old man was admitted to the hospital on January 14, 2017 with pneumonia and altered mental status. He had been declining markedly over the last couple of months, since the of his . He was admitted and treated with IV fluids and IV antibiotics, etc. He has continued to have episodes of confusion and agitation, interrupting episodes of generally being obtunded. He has been nonverbal for most of his stay. He really did not show any significant clinical improvement with treatment. His overall debilities were reviewed with his son Fer, who is his POA, as well as his daughter and his other son. Ultimately, they all agreed that the patient would not want to continue aggressive care, and would rather let nature take its course. He was discharged to swing bed status yesterday. Last evening we started comfort care measures. Today, the patient remains obtunded. He does not respond at all to me, but nurses say occasionally he will moan. He has no purposeful or intelligible speech. He does not follow commands. He had a follow-up swallow eval this morning, and they confirm that he really is not safe to swallow anything. He is unable to give a history. January 20, 2017: The patient is now on comfort measures. He continues obtunded today and does not respond to me. He appears in no acute distress. - Constitutional Vitals: Vital Signs Temp Pulse Resp BP Pulse Ox 97.5 F 89 28 H 118/82 87 L 01/20/17 07:29 01/20/17 05:54 01/20/17 11:01 01/20/17 07:29 01/20/17 07:29 Period Temp Pulse Resp BP Sys/Anne Pulse Ox Last 24 Hr 97.5 F-97.8 F 89-112 - 118-123/77-82 84-91 Intake and Output 01/19/17 01/20/17 01/20/17 21:59 05:59 13:59 Intake Total 0 / 0 Output Total 2 / 2 2 / 2 Balance -2 / -2 -2 / -2 -1 / -1 Intake & Output: Intake & Output 01/19/17 01/20/17 01/20/17 21:59 05:59 13:59 Intake Total 0 / 0 Output Total 2 / 2 2 / 2 Balance -2 / -2 -2 / -2 -1 / -1 Intake: Oral 0 / 0 Output: # of times incontinent of 2 / 2 2 / 2 urine Other: # Voids 1 # Bowel Movements 0 # of times incontinent of 1 Bowels He appears in no acute distress. Neck shows no obvious JVD. Cardiac exam shows regular rate and rhythm. Lungs: Breath sounds are coarse. Abdomen is soft. Extremities show no significant edema. Neurologic exam the patient Meints mostly unresponsive. Medical - PN: Obj Da - Labs Labs: January 18: CBC showed white blood cell count of 9000, hemoglobin 13, hematocrit 38, RDW 15 , platelets 241,000. Absolute neutrophil count was 8900. Chemistry panel showed normal electrolytes, with glucose of 142. AST was elevated at 68, ALT 71, direct bili 0.4, GGT 72, LDH 313. These were all increased. january 17: Chest x-ray: Moderate sized infiltrate versus mass in the right mid lung, with slight progression. Moderate patchy infiltrate in the left mid lung and base, also progressing. Consider aspiration. small bilateral pleural effusions. January 14: -Urinalysis showed 30 mg of protein, positive occult blood, negative nitrites and leukocyte esterase. -blood cultures are negative so far. -MRSA screen was negative. EKG: Irregular rhythm, possible atrial fibrillation. Nonspecific intraventricular conduction delay. Meds: Medications Acetaminophen (Tylenol) 500 mg PO Q4-6HP PRN PRN Reason: PAIN/FEVER > 101 Albuterol Sulfate (Ventolin) 2.5 mg INH Q4HP PRN PRN Reason: Shortness Of Breath Or Wheezing Docusate Sodium (Colace) 100 mg PO BID PRN PRN Reason: Constipation Glucose Oxid/Lactoperoxid/Muramidas (Biotene) 1 each TOPICAL PRN PRN PRN Reason: Dry Mouth Last Admin: 01/20/17 11:00 Dose: 1 each Heparin Sodium (Porcine) (Heparin Flush) 2 ml IV Q12 [facility] Last Admin: 01/20/17 09:40 Dose: 2 ml Lorazepam (Ativan) 0.5 - 1 mg IV Q2HP PRN PRN Reason: ANXIETY/SEDATION Last Admin: 01/20/17 11:56 Dose: 0.5 mg Morphine Sulfate (Morphine) 0 mg IV Q1HP PRN PRN Reason: Pain Ondansetron HCl (Zofran) 4 mg IV Q4HP PRN PRN Reason: Nausea And Vomiting Remedy Calazime Skin (Paste 1 Dose)) 1 dose TOPICAL BID [facility] Last Admin: 01/20/17 09:40 Dose: Not Given Sodium Chloride (Saline Flush) 10 ml IV Q8 [facility] Last Admin: 01/20/17 05:38 Dose: 10 ml Medical - PN: A/P - Time Spent With Patient Total time spent is greater than 50% in coordination of care (as documented) at patient's floor/unit and/or counseling patient: 15 - 24 minutes - Narrative A/P Narrative: #1. Disposition: The patient was transferred to comfort care. Numerous family members have been visiting today. -IV Ativan and morphine as needed, oxygen and albuterol nebulizers as needed. Skin and wound care as needed. The patient's family declined Aty catheter. #2. Infectious disease. -Health care associated pneumonia: he was treated with IV Zosyn and vancomycin, and while vital signs were fairly stable, his x-ray has looked worse, and there was some suggestion of possible spread of cancer.. #3. Pulmonary.acute hypoxic respiratory failure. The patient has bilateral infiltrates versus mass. He does have a recent history of metastatic lung lesions, and radiation. Radiation pneumonitis might also be a concern. continue supplemental oxygen and bronchodilators as needed for comfort.. #4. Neurologic. The patient does have underlying dementia, and has frequent episodes of agitation, which respond fairly well to Ativan. #6.code status: DNR Medical - PN: Qual - VTE Deep Vein Thrombosis/Pulmonary Embolism Present on Admission: No
--- NOTE | 2017-01-20 17:28 | Death Note ---
Discharge Sum: Prov - Provider Patient information: Note initiated : 01/20/17 at 5:26 pm Service Date, if different from initiated Date: [] Patient: Ashkan Alfred 81 y/o M admitted on 01/18/17 for Pneumonia. Chief Complaint: [] Primary care physician: Nikita Olvera Admitting clinician: Clark Henry Pronouncing clinician: Haleigh Guzman Discharge Sum: Diag - PCOD Cause of : Pneumonia Discharge Sum: Summary - Date and Time Date of admission: 01/18/17 14:34 Date of : 01/20/17 - Summary Details: This 81-year-old man was admitted to the hospital on January 14, with healthcare associated pneumonia and altered mental status. He had been declining for a number of months, since the of his . He was initially treated aggressively with IV fluids and antibiotics, bronchodilators, oxygen. However he really never improved significantly. He does have an underlying history of metastatic cancer, and because of numerous comorbidities, including dementia, his family ultimately decided to transition him to comfort care. He was transitioned 2 days ago. Today he peacefully, with numerous family members at the bedside. Time of was approximately 1622. - Additional Data Confirmation of as documented by pronouncing clinician: no pulse, no respirations Family: at bedside Attending/PCP notified?: No Attending physician: Haleigh Guzman Was code activated?: No Autopsy requested?: No law examiner notified?: No Advance directives?: Yes Hospice patient?: No (On comfort care.)
== END 2017-01-20 16:22 | disposition expired | DRG 193 ==
LOC: MEDSUR 14:34
PROVIDERS: ADMIT Internal Medicine; ATTEND Internal Medicine